=== PATIENT | male | born 1995 | race Caucasian/White ===

== ENCOUNTER 2021-04-18 12:07 | Emergency (ER) | payer BC, MEDICARE, SELFPAY ==
--- NOTE | ~2021-04-18 | XR_ITS ---
EXAMINATION: XR wrist RT min 3V EXAM DATE: 04/18/2021 12:36 INDICATION: RT post wrist pain after breaking up a dog fight last night. TECHNIQUE: Right wrist frontal, frontal with ulnar deviation, oblique and lateral projections obtain ed and reviewed. There is no prior study for comparison. FINDINGS: Right wrist scapholunate joint space is maintained. Previously seen 5th metacarpal neck fr acture has healed. There are no acute fractures or dislocations identified. There is no subcutaneous gas. The soft tissue is unremarkable. There are no radiopaque foreign bodies. IMPRESSION: No acute osseous findings. Reviewed, dictated and finalized at location B. ND [employer]OR IMPRESSION: No acute osseous findings.
--- NOTE | 2021-04-18 12:18 | ED.UPPEXIN ---
HPI - Extremity Injury (Upper) General Chief Complaint: Extremity Injury, Upper Stated Complaint: right hand pain Time Seen by Provider: 04/18/21 12:22 Source: patient Mode of arrival: ambulatory Limitations: no limitations History of Present Illness HPI narrative: Mr. Bolton is a 25-year-old male patient presenting to the clinic today with complaints of right wrist injury after grabbing onto a dog's collar yesterday during a dog fight. He reports he does not really know what had happened to his wrist however he did fall at one point in time when holding onto the dog's collar so he may have twisted his wrist. Reports pain to the radial aspect of the dorsal wrist. Has very minimal swelling. MD complaint: injury to: right, wrist and hand Related Data Home Medications Medication Instructions Recorded Confirmed paliperidone 3 mg PO DIRECTED 04/18/21 04/18/21 sertraline 100 mg DIRECTED 04/18/21 04/18/21 Allergies Allergy/AdvReac Type Severity Reaction Status Date / Time hydrocodone Allergy Intermediate Hallucinati Verified 04/18/21 12:32 ng Review of Systems Review of Systems: Pertinent positives per HPI. Patient denies any fever, chills, rash, headache, visual changes, dizziness, cough, runny nose, sore throat, shortness of breath, chest pain, palpitations, nausea, vomiting, diarrhea, constipation, abdominal pain, or any urinary issues. PMFSH Comments At the time of my signature, I reviewed and agree with the nursing past medical, surgical, social, and family history. There is no relevant family history pertinent to the patient complaint. Exam Narrative: General: Well-developed, well nourished, in no apparent distress Cardio: Regular rate and rhythm, s1 and s2 normal, no murmur appreciated. Resp: Clear to auscultation bilaterally, no rhonchi, rales, wheezing or rubs. Musculoskeletal: No deformity, mild bruising and tenderness to palpation over the dorsal radial wrist, grossly normal range of motion, pain with hyperextension of the wrist, mild pain with radial deviation, neurovascular intact with a strong radial pulse. Able to flex and extend fingers without issues. Course Course Emergency Course: Portions of this record may have been created with voice recognition software. Level of Care: Express Care Visit Vital Signs Vital signs: Vital Signs Temperature 36.2 C L 04/18/21 12:20 Pulse Rate 89 04/18/21 12:20 Respiratory Rate 18 04/18/21 12:20 Blood Pressure 121/69 04/18/21 12:20 Pulse Oximetry 100 04/18/21 12:20 Temperature 36.2 C L 04/18/21 12:20 Pulse Rate 89 04/18/21 12:20 Respiratory Rate 18 04/18/21 12:20 Blood Pressure 121/69 04/18/21 12:20 Pulse Oximetry 100 04/18/21 12:20 Vital signs reviewed MDM - Extremity Injury (Upper) Differential Diagnosis Differential diagnosis: Likely sprain and strain of wrist, fracture of wrist and other (Soft tissue injury) Medical Records Attestation: I reviewed the patient's medical records. Discharge Plan Discharge Clinical Impression: Sprain and strain of wrist Patient Disposition: Home, Self-Care Condition: Stable Instructions: Wrist Sprain (ED) Additional Instructions: X-ray is negative for any fracture or malalignment. Awaiting radiologist report. Rest, ice, elevate, and wear wrist splint as directed Tylenol/motrin for pain as discussed. Follow up with your PCP if symptoms persist more than 1 week. Prescriptions: No Action sertraline 100 mg tablet 100 mg DIRECTED RF: 0 paliperidone 3 mg tablet extended release 24 hr 3 mg PO DIRECTED RF: 0 Follow-up/Referrals: UNKNOWN,DOCTOR [Primary Care Provider] - Time of Disposition: 12:55 Quality NIHSS Nursing Documentation ED NIHSS nursing documentation: reviewed/agree
[2021-04-18 12:20] VITALS: BP 121/69; PULSE 89; RESP 18; TEMP 36.2; O2SAT 100
== END 2021-04-18 13:00 | disposition home or self-care (01) ==
PROVIDERS: Emergency Provider Nurse Practitioner Family
DX: S63.501A Unspecified sprain of right wrist, initial encounter (principal); S66.911A Strain of unspecified muscle, fascia and tendon at wrist and hand level, right hand, initial encounter; X58.XXXA Exposure to other specified factors, initial encounter; F32.A Depression, unspecified; F20.9 Schizophrenia, unspecified
CPT/HCPCS: 73110; 99213; G0463

== ENCOUNTER 2023-04-24 15:12 | Emergency (ER) | payer BC, MEDICAID, SELFPAY ==
--- NOTE | ~2023-04-24 | XR_ITS ---
EXAMINATION: XR pelvis 1-2V DATE: 04/24/2023 16:07 INDICATION: Bilateral hip pain. TECHNIQUE: An anteroposterior view of the pelvis was obtained. COMPARISON: None. FINDINGS: Bone alignment is normal. No fracture. Joint spaces are normal. IMPRESSION: 1. No etiology for the patient's symptoms. Reviewed, dictated and finalized at location E. IAL EVENTS ASSISTANT
[2023-04-24 15:20] VITALS: BP 128/61; PULSE 74; RESP 20; TEMP 37; O2SAT 98
[2023-04-24 15:38] VITALS: BP 128/61; PULSE 74; RESP 20; TEMP 37; O2SAT 98
--- NOTE | 2023-04-24 15:46 | ED.BACK ---
HPI - Back Pain/Injury General Chief Complaint: Back Pain/Injury Stated Complaint: major aches & spasms/back pain Source: patient Mode of arrival: ambulatory Limitations: no limitations History of Present Illness HPI Narrative: 27 year old male who presents to [facility] care with mother who is POA with complaints of back and hip pain with spasms to back for the past week increased in the past 2 days.Mother reports that son has history of having generalized joint pain and was placed on Meloxicam about 4 months ago. Mother reports that son has memory issues and history of schizophrenia, depression and anciety and was started on InVega shots to treat his mental health issues. Mother reports that he was also started on Cholesterol medications about 4 months ago also, Mother states that son has appointment in [facility] in regards to memory issues in next few months, Patient reports that he has been taking Ibuprofen along with Meloxicam and some muscle relaxers. Patient admits to some marijuana and alcohol use and is daily smoker. Patient reports that joint are popping especially hips. Patient denies any difficulty passing stools or urinating , no saddle paraesthesia. Patient denies any fevers,chills or sweats or any URI symptoms. MD elicited complaint: back pain and other (back spasms) Pertinent past history: other (ongoing joint pains) Onset (ago): week(s) (increased symptoms for past week ongoing problem stated) Pain scale (0-10): 7 Similar Symptoms Previously: Yes Quality: aching and other (popping of joints) Treatments prior to arrival: NSAIDS and other (muscle relaxer, meloxicam) Related Data Home Medications Medication Instructions Recorded Confirmed sertraline 100 mg tablet 100 mg DAILY 04/18/21 04/24/23 atorvastatin 20 mg tablet 20 mg PO DAILY 04/24/23 04/24/23 meloxicam 7.5 mg tablet See Rx Instructions .Route .COMPLEX 04/24/23 04/24/23 modafinil 100 mg tablet (Provigil) See Rx Instructions .Route .COMPLEX 04/24/23 04/24/23 paliperidone palmitate 39 mg/0.25 39 mg IM Q30D 04/24/23 04/24/23 mL intramuscular syringe (Invega Sustenna) prazosin 1 mg capsule 1 mg PO DAILY 04/24/23 04/24/23 Allergies Allergy/AdvReac Type Severity Reaction Status Date / Time hydrocodone Allergy Intermediate Hallucinati Verified 04/24/23 15:23 ng Review of Systems Review of Systems: CONSTITUTIONAL: Denies fever, chills, or sweats. CARDIOVASCULAR: Denies chest pain, palpitations, or edema. RESPIRATORY: Denies cough or dyspnea. GASTROINTESTINAL: Denies abdominal pain, nausea, vomiting, or diarrhea. GENITOURINARY: Denies dysuria or hematuria. SKIN: Denies rash or itching. MUSCULOSKELETAL: Reports back pain and spasms Joint pains or myalgia. NEUROLOGIC: Denies headache, numbness, or weakness,reports memory loss and history of schizophrenia, depression All systems reviewed & are unremarkable except as noted in HPI and below PMFSH Past Medical History Medical History (Updated 04/26/23 @ 11:24 by Dali Blood NP) Anxiety and depression Elevated cholesterol Fracture of right wrist Joint pain Schizophrenia Social History Social History (Updated 04/26/23 @ 11:01 by Dali Blood NP) Smoking packs per day: 1 Smoking cigarettes per day: 20.0 Smoking status: Current every day smoker Tobacco type: cigarettes and e-cigarettes/vaping Alcohol intake: current Substance use: current Substance use type: marijuana Living arrangements: with family Gender identity (if verbalized by the patient): Male Comments At time of signature, agree with nursing past medical, surgical, social and family history. There is no relevant family history pertinent to the presenting complaint Exam Narrative: GENERAL: Well-appearing, well-nourished, and in no acute distress. HEAD: Normocephalic, atraumatic. EYES: PERRLA and EOMI. NECK: Supple. No lymphadenopathy. CHEST: Clear to auscultation. No respiratory distress. S
== END 2023-04-24 17:00 | disposition home or self-care (01) ==
PROVIDERS: Emergency Provider Registered Nurse; PCP Nurse Practitioner Family
DX: M54.6 Pain in thoracic spine (principal); M25.552 Pain in left hip; M25.551 Pain in right hip; F17.210 Nicotine dependence, cigarettes, uncomplicated; F17.290 Nicotine dependence, other tobacco product, uncomplicated; F12.90 Cannabis use, unspecified, uncomplicated; E78.00 Pure hypercholesterolemia, unspecified; F20.9 Schizophrenia, unspecified; F32.A Depression, unspecified; F41.9 Anxiety disorder, unspecified
CPT/HCPCS: 72170; 99213; G0463

== ENCOUNTER 2023-05-10 07:37 | Outpatient (CLI) | payer BC, MEDICAID, SELFPAY ==
--- NOTE | ~2023-05-10 | XR_ITS ---
XR shoulder RT min 2V 05/10/2023 09:05 Indication: Right shoulder pain Procedure: 4 views right shoulder Comparison: 05/10/2023 Findings: No fracture, subluxation or dislocation. No significant soft tissue abnormality. No foreign bodies. Impression: 1: No significant bone or joint abnormality. Reviewed, dictated and finalized at location B. Impression: 1: No significant bone or joint abnormality.
--- NOTE | ~2023-05-10 | XR_ITS ---
XR sacroiliac joints min 3V 05/10/2023 09:05 Indication: Low back pain Procedure: 3 view sacroiliac joints Comparison: 04/24/2023 Findings: Sacroiliac joints are symmetric. No significant joint space narrowing, erosion or ankylosis . Sacral foramen are symmetric. Impression: 1: No significant abnormality of the sacroiliac joints. Reviewed, dictated and finalized at location B. Impression: 1: No significant abnormality of the sacroiliac joints.
--- NOTE | ~2023-05-10 | XR_ITS ---
XR_[id number]_CR 05/10/2023 09:05 Indication: Bilateral knee pain Procedure: 2 views left Comparison: No prior studies for comparison. Findings: No fracture, subluxation or dislocation. No significant joint effusion. No significant join t space narrowing. Oblique no foreign bodies. Impression: 1: No significant bone or joint abnormality. Reviewed, dictated and finalized at location B. Impression: 1: No significant bone or joint abnormality.
--- NOTE | ~2023-05-10 | XR_ITS ---
XR shoulder LT min 2V 05/10/2023 09:05 INDICATION: Left shoulder pain PROCEDURE: 4 views left shoulder COMPARISON: 05/10/2023 FINDINGS: Fracture, dislocation or subluxation is not identified. The soft tissues appear within norm al limits. No foreign bodies are identified. IMPRESSION: 1: NO ACUTE BONE OR JOINT ABNORMALITY IDENTIFIED. Reviewed, dictated and finalized at location B.
--- NOTE | ~2023-05-10 | XR_ITS ---
XR ankle RT 2V 05/10/2023 09:05 Indication: Right ankle pain Procedure: 2 views right ankle Comparison: No prior studies for comparison. Findings: There is anatomic alignment. No fracture, subluxation or dislocation. No significant degene rative change. No erosions. No soft tissue abnormality. Impression: 1: No significant bone or joint abnormality. Reviewed, dictated and finalized at location B. Impression: 1: No significant bone or joint abnormality.
--- NOTE | ~2023-05-10 | XR_ITS ---
XR ankle LT 2V 05/10/2023 09:05 Indication: Left ankle pain Procedure: 2 views left ankle Comparison: No prior studies for comparison. Findings: There is anatomic alignment. No fracture, subluxation or dislocation. No significant degene rative change. No erosions. No soft tissue abnormality. Impression: 1: No significant bone or joint abnormality. Reviewed, dictated and finalized at location B. Impression: 1: No significant bone or joint abnormality.
--- NOTE | ~2023-05-10 | XR_ITS ---
XR lumbar spine 2-3V 05/10/2023 09:05 Indication: Low back pain Procedure: 3 views lumbar spine Comparison: No prior studies for comparison. Findings: Vertebral body heights are maintained. No fracture, subluxation or dislocation. No evidence for spondylolisthesis. Impression: 1: No significant abnormality of the lumbar spine. Reviewed, dictated and finalized at location B. Impression: 1: No significant abnormality of the lumbar spine.
--- NOTE | ~2023-05-10 | XR_ITS ---
XR_[id number]_CR 05/10/2023 09:05 Indication: Knee pain Procedure: 2 views right knee Comparison: No prior studies for comparison. Findings: No fracture, subluxation or dislocation. No significant soft tissue abnormality. No joint e ffusion. No foreign bodies. Impression: 1: No significant bone or joint abnormality. Reviewed, dictated and finalized at location B. Impression: 1: No significant bone or joint abnormality.
--- NOTE | ~2023-05-10 | XR_ITS ---
XR AC joint BI 05/10/2023 09:05 INDICATION: Bilateral shoulder pain PROCEDURE: 4 views of the acromioclavicular joints COMPARISON: No prior studies for comparison. FINDINGS: Fracture, dislocation or subluxation is not identified. No significant alteration of alignm ent with and without weightbearing. The soft tissues appear within normal limits. No foreign bodies are identified. IMPRESSION: 1: No significant bone or joint abnormality. Reviewed, dictated and finalized at location B.
== END 2023-05-10 07:38 ==
PROVIDERS: PCP Nurse Practitioner Family; Visit Provider Nurse Practitioner Family
DX: M25.571 Pain in right ankle and joints of right foot (principal); M25.561 Pain in right knee; M54.50 Low back pain, unspecified; M25.511 Pain in right shoulder; M25.572 Pain in left ankle and joints of left foot; M25.512 Pain in left shoulder; M25.562 Pain in left knee
CPT/HCPCS: 72100; 72202; 73030; 73050; 73560; 73600

== ENCOUNTER 2023-09-27 11:10 | Emergency (ER) | payer BC, MEDICAID, SELFPAY ==
--- NOTE | ~2023-09-27 | XR_ITS ---
XR chest 1V Ordering provider: Royce Valencia MD History: 27 years Male with . AMS . Comparison: None. FINDINGS: MEDIASTINUM: The cardiac silhouette is not enlarged. LUNGS: No infiltrates, effusions or pneumothorax. OTHER: No free air under the diaphragm. IMPRESSION: No acute cardiopulmonary pathology. Reviewed, dictated and finalized at location A.
--- NOTE | ~2023-09-27 | CT_ITS ---
EXAMINATION: CT brain wo con DATE: 09/27/2023 15:10 INDICATION: Altered mental status TECHNIQUE: Computed tomography (CT) of the head was performed without intravenous contrast. Sagittal and coronal reconstructions were performed. The mA was adjusted according to patient size. Iterative reconstruction technique was employed. The dose-length product was 605.33 mGy-cm. COMPARISON: head CT dated 02/25/2017 FINDINGS: No acute intracranial hemorrhage, acute infarction or abnormal extra axial fluid collection. Ventricl es are normal and symmetric. No significant interval change in a 3-4 mm mildly hyperdense lesion at t he midline near the foramen of Melton. Mild mucosal thickening and small amount of dependently layeri ng mucus in the left frontoethmoidal recess as well as a frontal intersinus septal cell arising from the left frontoethmoidal recess. The orbits and mastoid air cells are normal. IMPRESSION: 1. No acute intracranial process. 2. No significant change in a 3-4 mm mildly hyperdense lesion at the midline near the foramen of Monr oe which could represent a colloid cyst, aneurysm or neoplasm, likely benign given the greater than 6 years of stability. Reviewed, dictated and finalized at location A. IMPRESSION: 1. No acute intracranial process. 2. No significant change in a 3-4 mm mildly hyperdense lesion at the midline ne ar the foramen of Melton which could represent a colloid cyst, aneurysm or neop lasm, likely benign given the greater than 6 years of stability.
[2023-09-27 11:18] VITALS: BP 130/76; PULSE 75; RESP 20; TEMP 36.7; O2SAT 98
--- NOTE | 2023-09-27 14:45 | ED.GENADULT ---
HPI - General Adult General Chief complaint: Unspecified Stated complaint: pain all over Time Seen by Provider: 09/27/23 12:45 History of Present Illness HPI narrative: This is a 27-year-old male with a past medical history significant for documented schizophrenia and chronic pain. Patient presents accompanied by his mother for concerns of some acute mental status changes where he is more foggy and less responsive than normal. Patient is on multiple medications including the following; methocarbamol, tramadol, baclofen, nortriptyline, sertraline, diclofenac. He was recently started on a 3 additional medications by his primary care provider in the last several days including guanfacine, pregabalin and Savella to try and treat his chronic pain. Patient's medications are controlled by his mother. Patient lives at home with his mother. Patient at this time is awake alert answers my questions appropriately but states that he feels chronic pain. Denies any headache, vision changes, nausea, vomiting, abdominal pain, back pain, fever, chills, chest pain, shortness a breath. Ambulates unassisted. Denies any other ingestion such as Tylenol, aspirin, alcohol. Does endorse occasional marijuana. Mother provides majority of the collateral information states that she was concerned that he was not as responsive as normal and that this could be medication related. Related Data Home Medications Medication Instructions Recorded Confirmed sertraline 100 mg tablet 100 mg DAILY 04/18/21 04/24/23 atorvastatin 20 mg tablet 20 mg PO DAILY 04/24/23 04/24/23 meloxicam 7.5 mg tablet See Rx Instructions .Route .COMPLEX 04/24/23 04/24/23 modafinil 100 mg tablet (Provigil) See Rx Instructions .Route .COMPLEX 04/24/23 04/24/23 paliperidone palmitate 39 mg/0.25 39 mg IM Q30D 04/24/23 04/24/23 mL intramuscular syringe (Invega Sustenna) prazosin 1 mg capsule 1 mg PO DAILY 04/24/23 04/24/23 Allergies Allergy/AdvReac Type Severity Reaction Status Date / Time hydrocodone Allergy Intermediate Hallucinati Verified 09/27/23 11:26 ng Review of Systems Review of Systems: As reviewed above in HPI [facility] Past Medical History Medical History Anxiety and depression Elevated cholesterol Fracture of right wrist Joint pain Schizophrenia Social History Social History Smoking packs per day: 1 Smoking cigarettes per day: 20.0 Smoking status: Current every day smoker Tobacco type: cigarettes and e-cigarettes/vaping Alcohol intake: current Substance use: current Substance use type: marijuana Living arrangements: with family Gender identity (if verbalized by the patient): Male Exam Narrative: GENERAL: [Well-appearing, well-nourished, and in no acute distress.] HEAD: [Normocephalic, atraumatic.] EYES: [PERRLA and EOMI.] ENT: Nares clear, no rhinorrhea or epistaxis. Mucous membranes moist. NECK: Supple. CHEST: [Clear to auscultation. No respiratory distress.] HEART: [Regular rate and rhythm]. No murmur heard. [Normal peripheral pulses.] ABDOMEN: [Soft, nondistended], [nontender], [No rigidity or guarding] EXTREMITIES: Normal range of motion. [No edema.] SKIN: Warm, dry, no rash. NEURO: [No focal deficits]. Alert and oriented [x3.] Moves all extremities equally, no ataxia in the arms or legs. PSYCH: Flat affect otherwise appropriate conversations, no suicidal or homicidal ideation Course Vital Signs Vital signs: Vital Signs Temperature 36.7 C 09/27/23 11:18 Pulse Rate 75 09/27/23 11:18 Respiratory Rate 20 09/27/23 11:18 Blood Pressure 130/76 09/27/23 11:18 Pulse Oximetry 98 09/27/23 11:18 Oxygen Delivery Room Air 09/27/23 11:18 Temperature 36.7 C 09/27/23 11:18 Pulse Rate 60 09/27/23 16:28 Respiratory Rate 19 09/27/23 16:28 Blood Pressure 112/67 09/27/23 16
[2023-09-27] MEDS: LACTATED RINGERS 1,000 ML 999 ML IV CONT (14:57)
[2023-09-27 14:58] LABS: Fractional Inspired Oxygen 21 %; HCO3 VBG 26.7 mEq/l (24.0-30.0); PCO2 VBG 49.1 mmHg (42.0-48.0); pH VBG 7.354 (7.300-7.400)
[2023-09-27 14:59] LABS: PO2 VBG < 27.0 mmHg (35.0-45.0)
[2023-09-27 15:07] LABS: Basophils Absolute Auto 0.1 K/mm3 (0.0-0.1); Basophils Percent Auto 0.4 % (0.2-1.2); Eosinophils Absolute Auto 0.5 K/mm3 (0-0.3); Eosinophils Percent Auto 3.8 % (0-4.4); Hematocrit 43.7 % (42.0-52.0); Hemoglobin 14.5 g/dL (14.0-18.0); Immature Granulocyte Absolute 0.06 K/mm3 (0.00-0.031); Immature Granulocyte Percent A 0.5 % (0-0.5); Lymphocytes Absolute Auto 2.15 K/mm3 (0.9-3.2); Lymphocytes Percent Auto 17.9 % (18.3-44.2); Mean Corpuscular HGB Conc 33.2 g/dl (32-36); Mean Corpuscular Volume 93.4 fl (80-100); Mean Platelet Volume 9.1 fl (7.4-10.4); Monocytes Absolute Auto 0.5 K/mm3 (0.1-0.6); Monocytes Percent Auto 4.5 % (2.6-8.5); Neutrophils Absolute Auto 8.8 K/mm3 (1.3-6.7); Neutrophils Percent Auto 72.9 % (45.5-73.1); Platelet Count Result 307 k/mm3 (150-375); Red Blood Count 4.68 M/mm3 (4.6-6.20); Red Cell Distribution Width 12.8 % (11.5-14.5)
[2023-09-27 15:11] LABS: Add Urine Microscopic? YES; Appearance Urine Clear (Clear); Bilirubin Urine Negative (Negative); Blood Urine Negative (Negative); Color Urine Dark Yellow (Yellow); Glucose Urine UA Negative (Negative); Ketones Urine Trace mg/dL (Negative); Leukocyte Esterase Ur Negative LEU/UL (Negative); Nitrate Urine Negative (Negative); Protein Urine Negative (Negative); Specific Grav Ur 1.021 (1.001-1.035)
[2023-09-27 15:17] LABS: Acetaminophen < 10 ug/mL (10-30); Ethanol < 10 mg/dL (<10); Salicylate < 1.0 mg/dL (2-20)
[2023-09-27 15:18] LABS: Alanine Aminotransferase 22 U/L (6-50); Albumin Level 4.5 g/dL (3.5-5.1); Alkaline Phosphatase 83 U/L (38-126); Anion Gap 7 mmol/L (4-12); Aspartate Amino Transferase 25 U/L (17-59); Bilirubin,Total 0.6 mg/dL (0.2-1.3); Blood Urea Nitrogen 10 mg/dL (9-20); Carbon Dioxide 28 mmol/L (22-30); Chloride 104 mmol/L (98-107); Creatine Kinase 144 U/L (55-170); Estimated CRCL calculation 133 ml/min; Estimated Glomerular Filt Rate > 60; Glucose 91 mg/dL (65-110); Potassium 4.1 mmol/L (3.4-5.0); Prothrombin Time 13.6 Seconds (11.1-14.7); Sodium 139 mmol/L (137-145)
[2023-09-27 15:19] LABS: Lactic Acid Reflex 0.7 mmol/L (0.7-2.0); Partial Thromboplastin Time 29.6 Seconds (22.3-36.8)
[2023-09-27 15:34] LABS: Amphetamine Screen Urine Negative (Negative); Barbiturate Screen Urine Negative (Negative); Benzodiazepines Screen Urine Negative (Negative); Cannabinoid Screen Urine Positive (Negative); Cocaine Screen Urine Negative (Negative); Methadone Screen Urine Negative (Negative); Opiate Screen Urine Negative (Negative); Phencyclidine Screen Urine Negative (Negative)
[2023-09-27 16:14] LABS: Troponin I < 0.012 ng/mL (0.000-0.034)
[2023-09-27 16:28] VITALS: BP 112/67; PULSE 60; RESP 19; O2SAT 100
== END 2023-09-27 18:48 | disposition home or self-care (01) ==
PROVIDERS: Emergency Provider Student in an Organized Health Care Education/Training Program
DX: R41.82 Altered mental status, unspecified (principal); F20.9 Schizophrenia, unspecified; T50.915A Adverse effect of multiple unspecified drugs, medicaments and biological substances, initial encounter; E78.00 Pure hypercholesterolemia, unspecified; G89.29 Other chronic pain; F41.9 Anxiety disorder, unspecified; F32.A Depression, unspecified; F17.210 Nicotine dependence, cigarettes, uncomplicated; F17.290 Nicotine dependence, other tobacco product, uncomplicated; Z79.899 Other long term (current) drug therapy
CPT/HCPCS: 36415; 70450; 71045; 80053; 80307; 81001; 82550; 82803; 83605; 84443; 84484; 85025; 85610; 85730; 96360; 99284; J7120